=== PATIENT | female | born 1980 | race Caucasian/White ===

== ENCOUNTER 2018-11-22 10:18 | Outpatient (REF) | payer MEDICAID, SELFPAY ==
[2018-11-22 22:10] LABS: Cholesterol 203 mg/dL (50-200); HDL Cholesterol 72 mg/dL (40-60); LDL CHOLESTEROL 122 mg/dL (<100); Triglyceride 84 mg/dL (30-150)
== END 2018-11-22 10:38 ==
LOC: NCHCN 10:18
PROVIDERS: PCP Registered Nurse; Visit Provider Registered Nurse
DX: R53.83 Other fatigue (principal)
CPT/HCPCS: 80061; 82306; 83721

== ENCOUNTER 2021-03-14 18:01 | Outpatient (REF) | payer MEDICAID, SELFPAY ==
[2021-03-14 20:40] LABS: HCT 41.7 % (36.0-46.0); HGB 14.4 g/dL (11.2-15.7); MCH 32.6 pg (27.0-33.0); MCHC 34.5 % (32.0-36.0); MCV 94.3 fL (80-95); MPV 9.9 fL (8.0-11.0); Platelet Count 254 10^3/uL (130-400); RBC 4.42 10^6/uL (3.93-5.22); RDW 12.1 % (11.7-14.6); RDW-SD 42.4 fL; WBC 7.98 10^3/uL (4.4-10.8)
[2021-03-14 21:00] LABS: TSH (W/Ref FT4) 0.36 uIU/mL (0.36-3.74)
== END 2021-03-14 18:02 | disposition home or self-care (01) ==
LOC: NCHCN 18:01
PROVIDERS: PCP Registered Nurse; Visit Provider Registered Nurse
DX: R53.83 Other fatigue (principal)
CPT/HCPCS: 85027; 84443

== ENCOUNTER 2023-04-02 10:45 | Outpatient (REF) | payer MEDICAID, SELFPAY ==
--- NOTE | 2023-04-02 10:00 | PAPFT_PTH ---
PATIENT: Cathy Morton LOC: [facility]#:[id number] AGE/SX: 42/F ROOM: RE04/02/[address]: Aileen Almeida : 1980 BED: DIS: 04/02/2023 SPEC #: [id number] RECD: 04/06/23 17:14 STATUS: CHANDRA REMed #: [id number] RAVIN: 04/02/23 10:[address]: Aileen Almeida DEPT: [facility] Cytology RECD BY: Talia Luis Tissues: 1 - CX/ENDOCX FOR PAP SMEARS Procedures: PAP THIN PREP/[facility] Screening HPV DNA PROBE Comments: [id number] (CHLAMYDIA/GC)
[2023-04-02 15:32] LABS: HCT 43.7 % (36.0-46.0); MCH 31.8 pg (27.0-33.0); MCHC 34.3 % (32.0-36.0); MCV 93 fL (80-95); MPV 9.5 fL (8.0-11.0); Platelet Count 258 10^3/uL (130-400); RBC 4.71 10^6/uL (3.93-5.22); RDW 12.1 % (11.7-14.6); WBC 5.69 10^3/uL (4.4-10.8)
[2023-04-02 17:03] LABS: Calculated LDL 173 mg/dL (<100); Cholesterol 245 mg/dL (<200); HDL Cholesterol 57 mg/dL (40-60); TSH (W/Ref FT4) 0.51 uIU/mL (0.36-3.74); Triglyceride 77 mg/dL (<150)
[2023-04-07 14:37] LABS: Chlamydia Result Negative (Negative); GC Result Negative (Negative)
== END 2023-04-02 10:46 | disposition home or self-care (01) ==
LOC: NCHCN 10:45
PROVIDERS: PCP Registered Nurse; Visit Provider Registered Nurse
DX: R53.83 Other fatigue (principal); R63.5 Abnormal weight gain; E78.00 Pure hypercholesterolemia, unspecified; Z12.4 Encounter for screening for malignant neoplasm of cervix; Z11.51 Encounter for screening for human papillomavirus (HPV); Z11.3 Encounter for screening for infections with a predominantly sexual mode of transmission
CPT/HCPCS: 80061; 85027; 87491; 87591; 88142; 84443; 87624